=== PATIENT | female | born 1995 | race Caucasian/White ===

== ENCOUNTER 2017-02-01 12:20 | Emergency (ER) | payer OTHER ==
[~2017-02-01] VITALS: Ht 165.1 cm; Wt 88.3 kg
[2017-02-01 12:30] VITALS: BP 117/89
[2017-02-01 13:10] LABS: ADD MIUA? YES; BILIRUBIN NEGATIVE; BLOOD MODERATE; COLOR AMBER ((YELLOW)); GLUCOSE (STRIP) NEGATIVE; KETONES NEGATIVE; LEUKOCYTES MODERATE; NITRITE NEGATIVE; PROTEIN (STRIP) NEGATIVE; SPECIFIC GRAVITY 1.029 (1.000-1.030)
[2017-02-01 13:11] LABS: INTERNAL CONTROL VALID? YES
[2017-02-01 13:15] LABS: BACTERIA 2+ /HPF; CALCIUM OXALATE CRYSTALS 4+ /HPF; EPITHELIAL CELLS 2+ /HPF; HYALINE CASTS 0-5 /LPF; MUCUS TRACE /LPF; RED BLOOD CELLS 15-20 /HPF (0-5); WHITE BLOOD CELLS 30-40 /HPF (0-5)
[2017-02-01] MEDS ORDERED: KEFLEX500 MG PO (13:32)
[2017-02-01] MEDS ORDERED: BENADRYL50 MG PO (13:32)
== END 2017-02-01 13:50 | disposition home or self-care (01) ==
LOC: EME 12:20
PROVIDERS: Physician Assistant
DX: L30.9 Dermatitis, unspecified (principal); N39.0 Urinary tract infection, site not specified
CPT/HCPCS: 81003; 84703; 87077; 87086; 87186; 99281; 99283

== ENCOUNTER 2017-04-20 12:10 | Emergency (ER) | payer OTHER ==
[~2017-04-20] VITALS: Ht 165.1 cm; Wt 84.5 kg
[~2017-04-20 12:10] MED LIST: BENADRYL50 MG PO; KEFLEX500 MG PO
[2017-04-20 13:23] LABS: ADD MIUA? YES; BILIRUBIN NEGATIVE; BLOOD MODERATE; COLOR AMBER ((YELLOW)); GLUCOSE (STRIP) NEGATIVE; KETONES NEGATIVE; LEUKOCYTES LARGE; NITRITE POSITIVE; PROTEIN (STRIP) 100; SPECIFIC GRAVITY 1.013 (1.000-1.030); UROBILINOGEN 0.2 MG/DL (0.2-1.0)
[2017-04-20 14:24] LABS: WHITE BLOOD CELLS TNTC /HPF (0-5)
[2017-04-20 14:25] LABS: EPITHELIAL CELLS 1+ /HPF; UCUL ADDED? YES
[2017-04-20] MEDS ORDERED: KEFLEX500 MG PO (15:50)
[2017-04-20 15:57] VITALS: BP 126/78
[2017-04-22 12:13] LABS: CHLAMYDIA TRACHOMATIS NEGATIVE; NEISSERIA GONORRHOEAE POSITIVE
== END 2017-04-20 15:57 | disposition home or self-care (01) ==
LOC: EME 12:10
PROVIDERS: Physician Assistant
DX: N39.0 Urinary tract infection, site not specified (principal); A64 Unspecified sexually transmitted disease; H57.8 Other specified disorders of eye and adnexa; F17.200 Nicotine dependence, unspecified, uncomplicated
CPT/HCPCS: 81003; 84702; 87077; 87086; 87186; 87210; 87491; 87591; 99281; 99284; J0696